=== PATIENT | male | born 1985 ===

== ENCOUNTER 2020-12-12 06:46 | Day surgery (SDC) | payer OTHER | END 2020-12-12 21:10 | disposition home or self-care (01) | LOC: CIR.AMB 06:46 | PROVIDERS: ATTEND Orthopaedic Surgery Hand Surgery | DX: S62.635A Displaced fracture of distal phalanx of left ring finger, initial encounter for closed fracture (principal); S56.116A Strain of flexor muscle, fascia and tendon of left ring finger at forearm level, initial encounter; Z20.822 Contact with and (suspected) exposure to COVID-19 ==